=== PATIENT | male | born 1935 | race Caucasian/White ===

== ENCOUNTER 2017-01-18 16:16 | Emergency (ER) | payer MEDICARE ==
[~2017-01-18 16:16] MED LIST: ARTANE2 MG PO; ASCORBIC ACID500 MG PO; CEFDINIR300 MG PO; DESYREL50 MG PO; FEOSOL325 MG PO; THIOTHIXENE5 MG PO
[2017-01-18 17:12] LABS: BASO % 0.1 % (0.2-1.2); EOS # 0.2 10_X3_uL (0.0-0.5); EOS % 2.1 % (0.8-7.0); GRAN # 6.3 10_X3_uL (1.8-5.4); GRAN % 68.3 % (34.0-67.9); HEMATOCRIT 36.5 % (40-51); HEMOGLOBIN 12.5 g/dL (13.7-17.5); LYMPH # 1.7 10_X3_uL (1.3-3.6); LYMPH % 17.8 % (21.8-53.1); MEAN CORPUSCULAR HEMOGLOBIN 30.2 pg (27.0-33.0); MEAN CORPUSCULAR HGB CONC 34.2 g/dL (32.0-36.0); MEAN CORPUSCULAR VOLUME 88.2 fL (79-92); MEAN PLATELET VOLUME 9.6 fl (7.5-11.5); MONO # 1.1 10_X3_uL (0.3-0.8); MONO % 11.7 % (5.3-12.2); PLATELET COUNT 294 x10_3/uL (163-337); RED BLOOD COUNT 4.14 x10_6/uL (4.6-6.1); RED CELL DISTRIBUTION WIDTH 13.8 % (11.6-14.4); WHITE BLOOD COUNT 9.3 x10_3/uL (4.2-9.1)
[2017-01-18 17:26] LABS: BLOOD UREA NITROGEN 30 mg/dL (7-18); CALCIUM 9.1 mg/dL (8.7-10.7); CARBON DIOXIDE 27 mmol/L (21-32); CREATINE KINASE 90 U/L (35-232); GLUCOSE,RANDOM 113 mg/dL (70-99); POTASSIUM 4.4 mmol/L (3.5-5.1); SODIUM 139 mmol/L (136-145)
== END 2017-01-18 17:53 | disposition home or self-care (01) ==
LOC: ER 16:16
PROVIDERS: Emergency Medicine
DX: J44.9 Chronic obstructive pulmonary disease, unspecified (principal); F03.90 Unspecified dementia, unspecified severity, without behavioral disturbance, psychotic disturbance, mood disturbance, and anxiety; R05 Cough; D64.9 Anemia, unspecified; Z85.038 Personal history of other malignant neoplasm of large intestine; Z86.73 Personal history of transient ischemic attack (TIA), and cerebral infarction without residual deficits; M06.9 Rheumatoid arthritis, unspecified; F32.9 Major depressive disorder, single episode, unspecified; Z87.891 Personal history of nicotine dependence; R53.1 Weakness; R47.01 Aphasia; Z88.0 Allergy status to penicillin; Z88.1 Allergy status to other antibiotic agents
CPT/HCPCS: 36415; 71010; 80048; 82550; 82553; 85025; 87400; 99070; 99283